=== PATIENT | male | born 1995 | race Two or more races ===

== ENCOUNTER 2016-07-28 17:53 | Emergency (ER) | payer OTHER ==
[2016-07-28 18:09] VITALS: RESP 16
[2016-07-28] MEDS ORDERED: CEPHALEXIN 500 MG CAP PO ONE (19:04)
--- NOTE | 2016-07-28 19:06 | EDPHY ---
H & P Stated Complaint: pilonidal cyst returned after drainage 20 d ago HPI/ROS: Chief complaint: Return of pilonidal abscess History of present illness: This is a 20-year-old male who presents to the emergency department for evaluation of a pilonidal abscess. Patient reports he has developed swelling in the gluteal cleft over the last day. He had a similar problem approximately 3 weeks ago, he was seen in this emergency room, it was incised and drained he was discharged home. He feels this is recurrence of symptoms. He denies other associated signs or symptoms including no fevers or chills, no abdominal pain, no nausea vomiting, no changes in bowel habits, urinating well. - Personal History Current Tetanus/Diphtheria Vaccine: Yes Current Tetanus Diphtheria and Acellular Pertussis (TDAP): Yes Tetanus Vaccine Date: 2015 - Medical/Surgical History Hx Asthma: No Hx Chronic Respiratory Disease: No Hx Diabetes: No Hx Cardiac Disease: No Hx Renal Disease: No Hx Cirrhosis: No Hx Alcoholism: No Hx HIV/AIDS: No Hx Splenectomy or Spleen Trauma: No Other PMH: denies - Social History Smoking Status: Never smoked - Physical Exam Exam: General Appearance: Alert, nontoxic. Eyes: Pupils equal and round no injection. Respiratory: Chest is non tender, lungs are clear to auscultation. Cardiac: regular rate and rhythm Gastrointestinal: Abdomen is soft and non tender, no masses, bowel sounds normal. Musculoskeletal: Neck is supple and non tender. Extremities have full range of motion and are non tender. Skin: Patient has an area of erythema and edema to the superior gluteal cleft. Minimal surrounding erythema. Constitutional: Initial Vital Signs Temperature (C) 37.0 C 07/28/16 18:06 Heart Rate 86 07/28/16 18:06 Respiratory Rate 16 07/28/16 18:06 Blood Pressure 114/64 07/28/16 18:06 O2 Sat (%) 95 07/28/16 18:06 O2 Delivery Mode Room Air Allergies/Adverse Reactions: No Known Allergies Allergy (Verified 07/28/16 18:05) Home Medications: Medication Instructions Recorded Ibuprofen [Motrin (*)] 800 mg PO Q6 #15 tab 05/02/16 Cephalexin [Keflex] 500 mg PO TID 7 Days 07/28/16 Multivitamins 07/28/16 Medical Decision Making Procedures: Procedure: Abscess drainage. The patient's pilonidal abscess was located in the gluteal cleft. I obtained verbal consent from the patient to drain the abscess who was informed about the possibility of bleeding and pain. The abscess was incised with a scalpel and a small amount of purulent drainage was expressed. The patient tolerated the procedure well. The procedure was performed by myself. ED Course/Re-evaluation: Patient seen under the supervision of my secondary supervising physician Dr. Jonathan Leon. Patient presents to the emergency department concerned he has a return of a pilonidal abscess. Physical exam is consistent with an abscess. It is incised and drained. A small amount of pus is expressed. I will start him on antibiotics as this is a recurrence and there is surrounding erythema. I have discussed home care with him. Ultimately I discussed following up with a general surgeon for recheck and definitive care. He is given referral information. Strict return precautions are given. Patient voiced understanding and agreement with plan. - Data Points Medications Given: Discontinued Medications Cephalexin HCl (Keflex) 500 mg PO EDNOW ONE PRN Reason: Protocol Stop: 07/28/16 19:05 Last Admin: 07/28/16 19:09 Dose: 500 mg Departure - Departure Disposition: Home, Routine, Self-Care Clinical Impression: Pilonidal abscess Condition: Good Instructions: Pilonidal Cyst (ED) Additional Instructions: Follow-up with a surgeon for continued evaluation and care Apply warm compress to the area multiple times daily Take antibiotics as prescribed until finished even feeling better If symptoms worsen or new symptoms develop return to the emergency department for recheck Referrals: NONE *PRIMARY CARE P,. [Primary Care Provider] - As per Instructions Sukhdeep Almazan MD [Medical Doctor] - As per Instructions Hira Gonzalez MD [Medical Doctor] - As per Instructions Prescriptions: Cephalexin [Keflex] 500 mg PO TID 7 Days
[2016-07-28 19:14] VITALS: BP 110/79; PULSE 75; TEMP 98.4; O2SAT 97
== END 2016-07-28 19:13 | disposition home or self-care (01) ==
PROC: 0H98XZZ Drainage of Buttock Skin, External Approach (ICD-10-PCS; principal; 2016-07-28)
DX: L05.01 Pilonidal cyst with abscess (principal)

== ENCOUNTER 2016-10-17 00:03 | Emergency (ER) | payer OTHER ==
[2016-10-17 00:09] VITALS: RESP 16
[2016-10-17] MEDS ORDERED: ACETAMINOPHEN 500 MG TAB PO ONE (00:28)
--- NOTE | 2016-10-17 00:54 | EDPHY ---
H & P Stated Complaint: COUGH, sore throat, headache Time Seen by Provider: 10/17/16 00:38 HPI/ROS: CHIEF COMPLAINT: cough, sore throat, headache HISTORY OF PRESENT ILLNESS: 20-year-old male presents emergency department complaining of a 3 day history of cough, sore throat and headache. Patient reports body aches, no appetite. He denies sick contacts. Reports his cough is not productive. He denies ear pain. Patient reports today he feels very cold and has a headache. No blurred vision. Patient denies chest pain. He denies nausea, vomiting or diarrhea, no difficulty urinating, no abdominal pain. Patient does have a decreased appetite. REVIEW OF SYSTEMS: A comprehensive 10 point review of systems is otherwise negative aside from elements mentioned in the history of present illness. Source: Patient Exam Limitations: No limitations - Personal History Current Tetanus Diphtheria and Acellular Pertussis (TDAP): Yes Tetanus Vaccine Date: 2015 - Medical/Surgical History Hx Asthma: No Hx Chronic Respiratory Disease: No Hx Diabetes: No Hx Cardiac Disease: No Hx Renal Disease: No Hx Cirrhosis: No Hx Alcoholism: No Hx HIV/AIDS: No Hx Splenectomy or Spleen Trauma: No Other PMH: denies - Social History Smoking Status: Never smoked - Physical Exam Exam: General: Alert, nontoxic. ENT: Tympanic membranes clear, external auditory canal, external ear and surrounding soft tissue including over the mastoid unremarkable. Nasopharynx is injected, there is clear rhinorrhea. Oropharynx with erythema, no edema. There is no exudate. No tonsillar hypertrophy. No asymmetry. The uvula is midline. No elevation of tongue. There is no hoarseness. No drooling, patient has good control of their oral secretions. No trismus. No stridor. Cardiac: Regular rate and rhythm. Respiratory: Lungs clear to auscultation bilaterally. Neurological: no meningismus. Skin: No rashes. Constitutional: Initial Vital Signs Temperature (C) 38.2 C 10/17/16 00:07 Heart Rate 103 H 10/17/16 00:07 Respiratory Rate 16 10/17/16 00:07 Blood Pressure 112/49 L 10/17/16 00:07 O2 Sat (%) 94 10/17/16 00:07 O2 Delivery Mode Room Air Allergies/Adverse Reactions: No Known Allergies Allergy (Verified 07/28/16 18:05) Home Medications: Medication Instructions Recorded Multivitamins 07/28/16 Fluticasone Nasal [Flonase Nasal 1 sprays NASAL DAILY #1 mdi 10/17/16 [place] (RX)] Medical Decision Making - Data Points Medications Given: Discontinued Medications Acetaminophen (Tylenol) 1,000 mg PO EDNOW ONE Stop: 10/17/16 00:29 Last Admin: 10/17/16 00:36 Dose: 1,000 mg Departure - Departure Disposition: Home, Routine, Self-Care Clinical Impression: Viral syndrome Condition: Good Instructions: Viral Syndrome (ED) Additional Instructions: Take over the counter Tylenol and ibuprofen as instructed. Take 600 mg of ibuprofen every 8 hours with food for 3-5 days, also take 650 mg of Tylenol every 8 hours. You can alternate these every 4 hours. Use 1 spray of Flonase in each nostril daily for 7 days. Rest, drink plenty of fluids. Use a saline nasal rinse, humidifier at night, hot steam showers. Return to the ED for difficulty breathing, chest pain, other concerns. Referrals: [facility] [Outside] - As per Instructions Prescriptions: Fluticasone Nasal [Flonase Nasal [place] (RX)] 1 sprays NASAL DAILY #1 mdi
[2016-10-17] MEDS ORDERED: IBUPROFEN 600 MG TAB PO ONE (00:56)
[2016-10-17 01:05] VITALS: BP 118/76; PULSE 92; TEMP 100; O2SAT 95
== END 2016-10-17 01:05 | disposition home or self-care (01) ==
DX: B34.9 Viral infection, unspecified (principal)

== ENCOUNTER 2018-05-04 23:15 | Emergency (ER) | payer OTHER ==
--- NOTE | 2018-05-04 23:24 | EDPHY ---
H & P Stated Complaint: Mid stomach pain, possibly r/t apple Time Seen by Provider: 05/04/18 23:24 HPI/ROS: HPI CHIEF COMPLAINT: Abdominal pain after eating apples. HISTORY OF PRESENT ILLNESS: Otherwise healthy 22-year-old male, presents emergency room with abdominal pain located epigastric and mid abdomen. Patient states this started about an hour and half to 2 hr ago after eating an apple. States the pain is rather min constant. Not very severe. No vomiting. No diarrhea. Due to the ongoing pain decided come the emergency room. He rates it 3/10. Past Medical History: Denies medical history Past Surgical History: Denies surgical history Social History: Denies drugs alcohol tobacco. [employer] student. Family History: Noncontributory ROS REVIEW OF SYSTEMS: 10 Systems were reviewed and negative with the exception of the elements mentioned in the history of present illness. Exam Constitutional nontoxic no acute distress triage nursing summary reviewed, vital signs reviewed, awake/alert. Eyes normal conjunctivae and sclera, EOMI, PERRLA. HENT normal inspection, atraumatic, moist mucus membranes, no epistaxis, neck supple/ no meningismus, no raccoon eyes. Respiratory clear to auscultation bilaterally, normal breath sounds, no respiratory distress, no wheezing. Cardiovascular rate normal, regular rhythm, no murmur, no edema, distal pulses normal. Gastrointestinal soft, non-tender, no rebound, no guarding, normal bowel sounds, no distension, no pulsatile mass. Genitourinary no CVA tenderness. Musculoskeletal no midline vertebral tenderness, full range of motion, no calf swelling, no tenderness of extremities, no meningismus, good pulses, neurovascularly intact. Skin pink, warm, & dry, no rash, skin atraumatic. Neurologic awake, alert and oriented x 3, AAOx3, moves all 4 extremities equally, motor intact, sensory intact, CN II-XII intact, normal cerebellar, normal vision, normal speech. Psychiatric normal mood/affect. Heme/Lymph/Immune no lymphadenopathy. Differential diagnosis includes but is not limited to and in no particular order : Bowel obstruction, appendicitis, gallbladder disease, diverticulitis, colitis , enteritis, perforated viscus, gastritis, GERD, esophagitis, urinary tract infection, pyelonephritis, kidney stones Medical Decision Making: Plan for this patient IV establishment IV fluid bolus , GI cocktail to see if this improves his discomfort, basic blood work, and re- evaluate. Re-evaluation: 0102: Re-examination at this time patient is resting comfortably no acute distress abdomen reexamine is soft nontender. Feels better after GI cocktail. He had epigastric abdominal pain. No lower right lower quadrant pain. I will allow the patient go home as he feels much better. However he understands return precautions return emergency room if there is worsening abdominal pain fever vomiting. We do not perform a CT scan this evening. Given that he feels better after GI cocktail his abdomen remains benign I do not feel this time he needs imaging. However he gets worsening abdominal pain he should return to the ER he understands this and is comfortable this plan. Source: Patient - Personal History Current Tetanus Diphtheria and Acellular Pertussis (TDAP): Yes Tetanus Vaccine Date: 2015 - Medical/Surgical History Hx Asthma: No Hx Chronic Respiratory Disease: No Hx Diabetes: No Hx Cardiac Disease: No Hx Renal Disease: No Hx Cirrhosis: No Hx Alcoholism: No Hx HIV/AIDS: No Hx Splenectomy or Spleen Trauma: No Other PMH: denies - Social History Smoking Status: Never smoked Constitutional: Initial Vital Signs Temperature (C) 37.0 C 05/04/18 23:16 Heart Rate 74 05/04/18 23:16 Respiratory Rate 18 05/04/18 23:16 Blood Pressure 122/91 H 05/04/18 23:16 O2 Sat (%) 98 05/04/18 23:16 O2 Delivery Mode Room Air Allergies/Adverse Reactions: No Known Allergies Allergy (Verified 05/04/18 23:16) Home Medications: Medication Instructions Recorded Multivitamins 07/28/16 Fluticasone Nasal [Flonase Nasal 1 sprays NASAL DAILY #1 mdi 10/17/16 [place] (RX)] Ranitidine HCl [Zantac] 150 mg PO DAILY #14 tablet 05/05/18 Medical Decision Making - Data Points Laboratory Results: Laboratory Results 05/04/18 23:35 05/04/18 23:35 05/04/18 05/04/18 05/04/18 23:55 23:35 23:35 WBC 7.58 10^3/uL 10^3/uL (3.80-9.50) RBC 5.39 10^6/uL 10^6/uL (4.40-6.38) Hgb 15.4 g/dL g/dL (13.7-17.5) Hct 45.6 % % (40.0-51.0) MCV 84.6 fL fL (81.5-99.8) MCH 28.6 pg pg (27.9-34.1) MCHC 33.8 g/dL g/dL (32.4-36.7) RDW 12.5 % % (11.5-15.2) Plt Count 239 10^3/uL 10^3/uL (150-400) MPV 9.6 fL fL (8.7-11.7) Neut % (Auto) Not Reported Lymph % (Auto) Not Reported [place] % (Auto) Not Reported Eos % (Auto) Not Reported Baso % (Auto) Not Reported Nucleat RBC Rel Count Not Reported Absolute Neuts (auto) Not Reported Absolute Lymphs (auto) Not Reported Absolute Monos (auto) Not Reported Absolute Eos (auto) Not Reported Absolute Basos (auto) Not Reported Absolute Nucleated RBC Not Reported Immature Gran % Not Reported Seg Neutrophils % 44.4 % % Band Neutrophils % 0.0 % % Lymphocytes % 38.4 % % Monocytes % 12.1 % % Eosinophils % 5.1 % % Basophils % 0.0 % % Metamyelocytes % 0.0 % % Myelocytes % 0.0 % % Promyelocytes % 0.0 % % Blast Cells % 0.0 % % Immature Gran # Not Reported Absolute Seg Neuts 3.37 10^/uL 10^/uL (1.70-6.50) Absolute Band Neuts 0.00 10^3/uL 10^3/uL (0.00-0.70) Absolute Lymphocytes 2.91 10^3/uL 10^3/uL (1.00-3.00) Absolute Monocytes 0.92 10^3/uL H 10^3/uL (0.30-0.80) Absolute Eosinophils 0.39 10^3/uL 10^3/uL (0.03-0.40) Absolute Basophils 0.00 10^3/uL L 10^3/uL (0.02-0.10) Absolute Metamyelocyte 0.00 10^3/mL 10^3/mL (0.00-0.00) Absolute Myelocytes 0.00 10^3/mL 10^3/mL (0.00-0.00) Absolute Promyelocytes 0.00 10^3/uL 10^3/uL (0.00-0.00) Absolute Plasma Cells 0.00 10^3/uL 10^3/uL (0.00-0.00) Nucleated RBCs 0 /100 WBC /100 WBC (0-0) RBC/WBC/PLT Morphology NORMAL (NORMAL) Absolute Blast Cells 0.00 10^3/uL 10^3/uL (0.00-0.00) Plasma Cells % 0.0 % % Platelet Estimate ADEQUATE (ADEQ) Sodium 142 mEq/L mEq/L (135-145) Potassium 3.9 mEq/L mEq/L (3.3-5.0) Chloride 101 mEq/L mEq/L (97-110) Carbon Dioxide 26 mEq/l mEq/l (22-31) Anion Gap 15 mEq/L H mEq/L (6-14) BUN 12 mg/dL mg/dL (7-23) Creatinine 0.7 mg/dL mg/dL (0.7-1.3) Estimated GFR > 60 Glucose 89 mg/dL mg/dL (70-100) Calcium 10.1 mg/dL mg/dL (8.5-10.4) Total Bilirubin 1.2 mg/dL mg/dL (0.1-1.4) Conjugated Bilirubin 0.2 mg/dL mg/dL (0.0-0.5) Unconjugated Bilirubin 1.0 mg/dL mg/dL (0.0-1.1) AST 23 IU/L IU/L (17-59) ALT 29 IU/L IU/L (21-72) Alkaline Phosphatase 111 IU/L IU/L (38-126) Total Protein 8.2 g/dL g/dL (6.3-8.2) Albumin 4.8 g/dL g/dL (3.5-5.0) Lipase 92 IU/L IU/L (23-300) Urine Color PALE YELLOW Urine Appearance HAZY Urine pH 6.0 (5.0-7.5) Ur Specific [place] 1.009 (1.002-1.030) Urine Protein NEGATIVE (NEGATIVE) Urine Ketones NEGATIVE (NEGATIVE) Urine Blood NEGATIVE (NEGATIVE) Urine Nitrate NEGATIVE (NEGATIVE) Urine Bilirubin NEGATIVE (NEGATIVE) Urine Urobilinogen NEGATIVE EU EU (0.2-1.0) Ur Leukocyte Esterase NEGATIVE (NEGATIVE) Urine Glucose NEGATIVE (NEGATIVE) Medications Given: Discontinued Medications Al Hydroxide/Mg Hydroxide (Maalox Susp) 30 ml PO ONCE ONE Stop: 05/04/18 23:27 Last Admin: 05/04/18 23:49 Dose: 30 ml Hyoscyamine Sulfate (Levsin, Hyomax-Sl) 0.25 mg PO ONCE ONE Stop: 05/04/18 23:27 Last Admin: 05/04/18 23:50 Dose: 0.25 mg Sodium Chloride (Ns) 1,000 mls @ 0 mls/hr IV EDNOW ONE; Wide Open PRN Reason: Protocol Stop: 05/04/18 23:27 Last Admin: 05/04/18 23:39 Dose: 1,000 mls Lidocaine (Lidocaine 2% Viscous) 15 ml PO ONCE ONE Stop: 05/04/18 23:27 Last Admin: 05/04/18 23:49 Dose: 15 ml Departure - Departure Disposition: Home, Routine, Self-Care Clinical Impression: Abdominal pain Qualifiers: Abdominal location: unspecified location Qualified Code(s): R10.9 - Unspecified abdominal pain Condition: Good Instructions: Acute Abdominal Pain (ED) Additional Instructions: 1. Please return emergency room if there is worsening abdominal pain fever vomiting 2. Stay away from spicy fatty greasy foods 3. Zantac as prescribed. Referrals: NONE *PRIMARY CARE P,. [Primary Care Provider] - As per Instructions Prescriptions: Ranitidine HCl [Zantac] 150 mg PO DAILY #14 tablet
[2018-05-04] MEDS ORDERED: NS 1,000 ML IV ONE (23:26)
[2018-05-04] MEDS ORDERED: LIDOCAINE 2% VISCOUS 15 ML UDCUP PO ONE (23:26)
[2018-05-04] MEDS ORDERED: MAG HYDROX/AL HYDROX/SIMETH 30 ML UDCUP PO ONE (23:26)
[2018-05-04] MEDS ORDERED: HYOSCYAMINE SULFATE 0.125 MG TAB PO ONE (23:26)
[2018-05-04 23:42] LABS: PLATELET COUNT 239 10^3/uL (150-400)
[2018-05-05 01:11] VITALS: BP 134/72
== END 2018-05-05 01:10 | disposition home or self-care (01) ==
DX: R10.9 Unspecified abdominal pain (principal); E86.9 Volume depletion, unspecified

== ENCOUNTER 2018-08-12 12:51 | Emergency (ER) | payer OTHER ==
[2018-08-12] MEDS ORDERED: DEXAMETHASONE 4 MG TAB PO ONE (13:01)
[2018-08-12] MEDS ORDERED: ACETAMINOPHEN 500 MG TAB PO ONE (13:01)
--- NOTE | 2018-08-12 13:01 | EDPHY ---
H & P Stated Complaint: st Time Seen by Provider: 08/12/18 12:57 HPI/ROS: HPI: This is a 22-year-old male who presents with Chief Complaint: Sore throat Location: Throat Quality: Sore Duration: 2 days Signs and Symptoms: no fever, no nausea, no vomiting, no diarrhea, no urinary symptoms, no chest pain, no shortness of breath, no wheezing, + nonproductive cough, + sore throat, no neck stiffness, no joint pain, no swollen glands, no ear pain, no rash Timing: Acute, constant Severity: [id number] Context: Patient presents with 2 day history of sudden onset of sore throat accompanied by nonproductive cough and generalized fatigue. Patient denies any fever, neck stiffness, joint pain, swollen glands, rash, shortness of breath. Patient reports that he is able to eat and drink without difficulty. He took Advil approximately 1 hr prior to arrival. Patient is requesting school excuse. Received influenza vaccine this year. Modifying Factors: Advil 1 hr prior to arrival with minimal relief Comment: ROS: A comprehensive 10 system review of systems is otherwise negative aside from elements mentioned in the history of present illness. MEDICAL/SURGICAL/SOCIAL HISTORY: Medical history: Generally healthy. Does not take any regular medications. 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 Never smoked. Family history noncontributory. CONSTITUTIONAL: Nontoxic-appearing young adult male, awake and alert, no obvious distress HEENT: Atraumatic and normocephalic, PERRL, EOMI. Nares patent; no rhinorrhea; no nasal mucosal edema. Tympanic membranes clear. Oropharynx clear, tonsils 1 + with mild erythema; uvula midline; no exudate and moist pink mucosa. Airway patent. No lymphadenopathy. No meningismus. Cardiovascular: Normal S1/S2, regular rate, regular rhythm, without murmur rub or gallop. PULMONARY/CHEST: Symmetrical and nontender. Clear to auscultation bilaterally. Good air movement. No accessory muscle usage. ABDOMEN: Soft, nondistended, nontender, no rebound, no guarding, no peritoneal signs, no masses or organomegaly. No CVAT. EXTREMITIES: 2/2 pulses, strength 5/5, no deformities, no clubbing, no cyanosis or edema. NEUROLOGICAL: no focal neuro deficits. GCS 15. SKIN: Warm and dry, no erythema. no rash. Good capillary refill. Source: Patient Exam Limitations: No limitations - Personal History Current Tetanus Diphtheria and Acellular Pertussis (TDAP): Yes Tetanus Vaccine Date: 2015 - Medical/Surgical History Hx Asthma: No Hx Chronic Respiratory Disease: No Hx Diabetes: No Hx Cardiac Disease: No Hx Renal Disease: No Hx Cirrhosis: No Hx Alcoholism: No Hx HIV/AIDS: No Hx Splenectomy or Spleen Trauma: No Other PMH: denies - Social History Smoking Status: Never smoked Constitutional: Initial Vital Signs Temperature (C) 37.5 C 08/12/18 12:54 Heart Rate 94 08/12/18 12:54 Respiratory Rate 18 08/12/18 12:54 Blood Pressure 104/59 L 08/12/18 12:54 O2 Sat (%) 94 08/12/18 12:54 O2 Delivery Mode Room Air Allergies/Adverse Reactions: No Known Allergies Allergy (Verified 08/12/18 12:53) Home Medications: Medication Instructions Recorded Acetaminophen/Codeine 300/30Mg 1 each PO Q6 PRN #10 tab 08/12/18 [Tylenol #3 (*)] Advil 08/12/18 Medical Decision Making ED Course/Re-evaluation: Vital signs reviewed and stable upon arrival. Rapid strep test ordered Given p.o. Decadron 10 mg, 1000 mg Tylenol Modified Centor score is low risk; no antibiotic prophylaxis recommended 1333: Rapid strep negative No signs of tonsillar abscess/meningitis/dehydration School excuse provided per request This patient was seen under the supervision of my secondary supervising physician. I evaluated care for this patient independently. Discussed this patient with Dr. Randle who did not see the patient. Differential Diagnosis: Differential diagnosis includes but is not limited to strep pharyngitis, upper respiratory infection, influenza, meningitis, infectious mononucleosis. - Data Points Laboratory Results: 08/12/18 08/12/18 Unknown 13:08 Group A Strep Screen NEGATIVE (NEGATIVE) Group A Strep DNA Pending Medications Given: Discontinued Medications Acetaminophen (Tylenol) 1,000 mg PO EDNOW ONE Stop: 08/12/18 13:02 Last Admin: 08/12/18 13:08 Dose: 1,000 mg Dexamethasone (Decadron) 10 mg PO EDNOW ONE Stop: 08/12/18 13:02 Last Admin: 08/12/18 13:08 Dose: 10 mg Departure - Departure Disposition: Home, Routine, Self-Care Clinical Impression: Pharyngitis Qualifiers: Pharyngitis/tonsillitis etiology: unspecified etiology Qualified Code(s): J02.9 - Acute pharyngitis, unspecified Condition: Good Instructions: Pharyngitis (ED) Additional Instructions: Rest as much as possible until you are feeling better. Consume a minimum of 8-10 glasses of water or electrolyte fluid replacement drinks that include Gatorade, Powerade, Pedialyte. Eat a bland diet for the next 48 hours and then slowly advance as tolerated. Take ibuprofen 600 mg every 6-8 hours with food as needed for pain, fever. Take Tylenol with codeine every 6 hr as needed for severe/breakthrough pain. Emergency room will call you if your strep test results are positive. It appears at this time that this is a viral infection and that antibiotics are not indicated. Return to the ER immediately if you cannot swallow, have drooling, fevers, neck stiffness, cannot open your jaw, or any other symptoms that concern you. Referrals: [facility],. [Clinic] - As per Instructions Stand Alone Forms: School Excuse Prescriptions: Acetaminophen/Codeine 300/30Mg [Tylenol #3 (*)] 1 each PO Q6 PRN #10 tab PRN Reason: Pain, Breakthrough
[2018-08-12 13:45] VITALS: BP 117/69
== END 2018-08-12 13:47 | disposition home or self-care (01) ==
DX: J02.9 Acute pharyngitis, unspecified (principal)

== ENCOUNTER 2018-11-17 01:05 | Emergency (ER) | payer OTHER ==
--- NOTE | 2018-11-17 01:51 | EDPHY ---
H & P Stated Complaint: abd pain for one hour Time Seen by Provider: 11/17/18 01:51 HPI/ROS: HPI CHIEF COMPLAINT: Abdominal pain. HISTORY OF PRESENT ILLNESS: Patient is a 23-year-old male, otherwise healthy without any significant medical history or surgical history he presents emergency room with abdominal pain. Patient complains of periumbilical mid abdominal abdominal pain that started approximately 2.5 hr ago. He has associated nausea with but no vomiting. It does not radiate. Past Medical History: Denies medical history Past Surgical History: Denies surgical history Social History: Denies drugs alcohol tobacco. Family History: Noncontributory ROS REVIEW OF SYSTEMS: 10 Systems were reviewed and negative with the exception of the elements mentioned in the history of present illness. Exam Constitutional triage nursing summary reviewed, vital signs reviewed, awake/ alert. Eyes normal conjunctivae and sclera, EOMI, PERRLA. HENT normal inspection, atraumatic, moist mucus membranes, no epistaxis, neck supple/ no meningismus, no raccoon eyes. Respiratory clear to auscultation bilaterally, normal breath sounds, no respiratory distress, no wheezing. Cardiovascular rate normal, regular rhythm, no murmur, no edema, distal pulses normal. Gastrointestinal mild tender palpation periumbilical, no rebound, no guarding, normal bowel sounds, no distension, no pulsatile mass. Genitourinary no CVA tenderness. Musculoskeletal no midline vertebral tenderness, full range of motion, no calf swelling, no tenderness of extremities, no meningismus, good pulses, neurovascularly intact. Skin pink, warm, & dry, no rash, skin atraumatic. Neurologic awake, alert and oriented x 3, AAOx3, moves all 4 extremities equally, motor intact, sensory intact, CN II-XII intact, normal cerebellar, normal vision, normal speech. Psychiatric normal mood/affect. Heme/Lymph/Immune no lymphadenopathy. Differential Diagnosis: Differential diagnosis includes but is not limited to and in no particular order: Bowel obstruction, appendicitis, gallbladder disease, diverticulitis, colitis, enteritis, perforated viscus, gastritis, GERD , esophagitis, urinary tract infection, pyelonephritis, kidney stones Medical Decision Making: Plan for this patient IV establishment IV fluid bolus , IV fentanyl 50 mcg for pain control IV Zofran 4 mg for nausea, basic labs, CT scan abdomen pelvis with IV contrast rule out acute appendicitis. Re-evaluation: [id number]: Patient re-evaluated this time resting comfortably in no acute distress , re-examination abdomen is soft nontender. The patient is not vomiting. States his abdominal pain is resolved. No symptoms at this time. Patient's labs are unremarkable Patient is CT scan abdomen pelvis with IV contrast due to abdominal pain around the periumbilical site this shows no acute intra-abdominal pelvic abnormality. No CT evidence for appendicitis. I did discussed return precautions return to the emergency room if worsening abdominal pain, fever, vomiting or not doing well. Source: Patient - Personal History Current Tetanus/Diphtheria Vaccine: Yes Current Tetanus Diphtheria and Acellular Pertussis (TDAP): Yes Tetanus Vaccine Date: 2015 - Medical/Surgical History Hx Asthma: No Hx Chronic Respiratory Disease: No Hx Diabetes: No Hx Cardiac Disease: No Hx Renal Disease: No Hx Cirrhosis: No Hx Alcoholism: No Hx HIV/AIDS: No Hx Splenectomy or Spleen Trauma: No Other PMH: denies - Social History Smoking Status: Never smoked Constitutional: Initial Vital Signs Temperature (C) 37.0 C 11/17/18 01:09 Heart Rate 88 11/17/18 01:09 Respiratory Rate 16 11/17/18 01:09 Blood Pressure 111/63 11/17/18 01:09 O2 Sat (%) 97 11/17/18 01:09 O2 Delivery Mode Room Air Allergies/Adverse Reactions: No Known Allergies Allergy (Verified 11/17/18 01:11) Home Medications: Medication Instructions Recorded NK [No Known Home Meds] 11/17/18 Medical Decision Making - Data Points Laboratory Results: Laboratory Results 11/17/18 02:05 11/17/18 02:05 11/17/18 11/17/18 11/17/18 02:05 02:05 01:20 WBC 5.40 10^3/uL 10^3/uL (3.80-9.50) RBC 5.19 10^6/uL 10^6/uL (4.40-6.38) Hgb 14.9 g/dL g/dL (13.7-17.5) Hct 44.2 % % (40.0-51.0) MCV 85.2 fL fL (81.5-99.8) MCH 28.7 pg pg (27.9-34.1) MCHC 33.7 g/dL g/dL (32.4-36.7) RDW 12.6 % % (11.5-15.2) Plt Count 205 10^3/uL 10^3/uL (150-400) MPV 10.1 fL fL (8.7-11.7) Neut % (Auto) 33.4 % L % (39.3-74.2) Lymph % (Auto) 41.5 % % (15.0-45.0) [place] % (Auto) 11.5 % % (4.5-13.0) Eos % (Auto) 12.8 % H % (0.6-7.6) Baso % (Auto) 0.6 % % (0.3-1.7) Nucleat RBC Rel Count 0.0 % % (0.0-0.2) Absolute Neuts (auto) 1.80 10^3/uL 10^3/uL (1.70-6.50) Absolute Lymphs (auto) 2.24 10^3/uL 10^3/uL (1.00-3.00) Absolute Monos (auto) 0.62 10^3/uL 10^3/uL (0.30-0.80) Absolute Eos (auto) 0.69 10^3/uL H 10^3/uL (0.03-0.40) Absolute Basos (auto) 0.03 10^3/uL 10^3/uL (0.02-0.10) Absolute Nucleated RBC 0.00 10^3/uL 10^3/uL (0-0.01) Immature Gran % 0.2 % % (0.0-1.1) Immature Gran # 0.01 10^3/uL 10^3/uL (0.00-0.10) RBC/WBC/PLT Morphology TNP Platelet Estimate TNP Sodium 141 mEq/L mEq/L (135-145) Potassium 4.2 mEq/L mEq/L (3.5-5.2) Chloride 106 mEq/L mEq/L (97-110) Carbon Dioxide 25 mEq/l mEq/l (22-31) Anion Gap 10 mEq/L mEq/L (6-14) BUN 11 mg/dL mg/dL (7-23) Creatinine 0.6 mg/dL L mg/dL (0.7-1.3) Estimated GFR > 60 Glucose 88 mg/dL mg/dL (70-100) Calcium 9.5 mg/dL mg/dL (8.5-10.4) Total Bilirubin 0.8 mg/dL mg/dL (0.1-1.4) Conjugated Bilirubin 0.1 mg/dL mg/dL (0.0-0.5) Unconjugated Bilirubin 0.7 mg/dL mg/dL (0.0-1.1) AST 19 IU/L IU/L (17-59) ALT 31 IU/L IU/L (21-72) Alkaline Phosphatase 62 IU/L IU/L (38-126) Total Protein 7.0 g/dL g/dL (6.3-8.2) Albumin 4.4 g/dL g/dL (3.5-5.0) Lipase 62 IU/L IU/L (23-300) Urine Color YELLOW Urine Appearance CLEAR Urine pH 7.0 (5.0-7.5) Ur Specific [place] 1.017 (1.002-1.030) Urine Protein NEGATIVE (NEGATIVE) Urine Ketones NEGATIVE (NEGATIVE) Urine Blood NEGATIVE (NEGATIVE) Urine Nitrate NEGATIVE (NEGATIVE) Urine Bilirubin NEGATIVE (NEGATIVE) Urine Urobilinogen NEGATIVE EU EU (0.2-1.0) Ur Leukocyte Esterase NEGATIVE (NEGATIVE) Urine Glucose NEGATIVE (NEGATIVE) Medications Given: Discontinued Medications Fentanyl (Sublimaze) 50 mcg IVP EDNOW ONE Stop: 11/17/18 02:01 Last Admin: 11/17/18 02:08 Dose: 50 mcg Sodium Chloride (Ns) 1,000 mls @ 0 mls/hr IV EDNOW ONE; Wide Open PRN Reason: Protocol Stop: 11/17/18 02:00 Last Admin: 11/17/18 02:05 Dose: 1,000 mls Ondansetron HCl (Zofran) 4 mg IVP EDNOW ONE Stop: 11/17/18 02:01 Last Admin: 11/17/18 02:08 Dose: 4 mg Departure - Departure Disposition: Home, Routine, Self-Care Clinical Impression: Abdominal pain Qualifiers: Abdominal location: periumbilical Qualified Code(s): R10.33 - Periumbilical pain Condition: Fair Instructions: Acute Abdominal Pain (ED) Additional Instructions: 1. [place] diet no spicy fatty greasy foods. 2. Return to the emergency room if develops worsening abdominal pain, fever, vomiting, not doing well. Referrals: NONE *PRIMARY CARE P,. [Primary Care Provider] - As per Instructions [facility],. [Clinic] - As per Instructions
[2018-11-17] MEDS ORDERED: NS 1,000 ML IV ONE (01:59)
[2018-11-17] MEDS ORDERED: fentaNYL 100 MCG/2 ML INJ IVP ONE (02:00)
[2018-11-17] MEDS ORDERED: ONDANSETRON 4 MG/2 ML VIAL IVP ONE (02:00)
[2018-11-17 02:15] LABS: PLATELET COUNT 205 10^3/uL (150-400)
[2018-11-17] MEDS ORDERED: IOPAMIDOL (ISOVUE-300) 100 ML BTL ONE (02:52)
[2018-11-17 03:42] VITALS: BP 105/54
== END 2018-11-17 04:12 | disposition home or self-care (01) ==
DX: R10.33 Periumbilical pain (principal); E86.9 Volume depletion, unspecified
CPT/HCPCS: 96374; J2405; J3010; Q9967